=== PATIENT | female | born 1980 | race Caucasian/White ===

== ENCOUNTER → 2018-12-07 | Emergency (ER) | payer OTHER ==
[~2018-12-07] VITALS: Ht 167.6 cm; Wt 71.7 kg
[~2018-12-07] MED LIST: ASPIRIN 81 MG CHEW (CHILDREN'S ASA) PO ONE; CATHETER FLUSH 10 ML SYR IV PRN; CYCL10TA9 PO; HOLD METFORMIN - RECEIVED CONTRAST 20 ML VIAL IV SCH; IOHEXOL 350 MG/ML 100 ML (OMNIPAQUE 350) VIAL IV ONE; NS 100 ML (IVPB) BAG IV ONE; ONDANSETRON 4 MG/2 ML (SDV) Z0FRAN ONE; RX-CYCLOBENZAPRINE 10 MG (FLEXERIL) TAB PPK#3 PO STA; RX-TRAMADOL 50 MG (ULTRAM) TAB PPK#4 PO STA; TRAM-42 PO
--- NOTE | 2018-12-07 19:00 | NUR ---
report from jackie rn and another nurse. i think i need to give asa.
[2018-12-07 19:06] LABS: BASOPHILS % (AUTO) 1 % (0-10); EOSINOPHILS # (AUTO) 0.1 10^3/uL (0.0-0.3); EOSINOPHILS % (AUTO) 1 % (0-10); HEMATOCRIT 31 % (35-52); HEMOGLOBIN 9.7 G/DL (11.5-16.0); LYMPHOCYTES # (AUTO) 1.9 X 10^3 (1.0-4.0); LYMPHOCYTES % (AUTO) 36 % (12-44); MEAN CORPUSCULAR HGB CONC 32 G/DL (32-36); MEAN CORPUSCULAR VOLUME 71 FL (80-99); MEAN PLATELET VOLUME 9.8 FL (7.4-10.4); MONOCYTES # (AUTO) 0.4 X 10^3 (0.0-1.0); MONOCYTES % (AUTO) 7 % (0-12); NEUTROPHILS # (AUTO) 2.9 X 10^3 (1.8-7.8); NEUTROPHILS % (AUTO) 55 % (42-75); PLATELET COUNT 295 10^3/uL (130-400); RED CELL DISTRIBUTION WIDTH 19.7 % (10.0-14.5); WHITE BLOOD COUNT 5.3 10^3/uL (4.3-11.0)
[2018-12-07 19:10] LABS: PROTHROMBIN TIME PATIENT 13.7 SEC (12.2-14.7)
--- NOTE | 2018-12-07 19:10 | Diagnostic Imaging Report ---
INDICATION: Chest pain. TECHNIQUE: Single view chest 6:59 PM. CORRELATION STUDY: 04/10/2007 FINDINGS: Heart size and mediastinum are stable. Vasculature is slightly more prominent from prior study without evidence for overt failure. The lungs are clear with no consolidating infiltrate. There is no significant effusion or pneumothorax. IMPRESSION: 1. Borderline vasculature without evidence for overt failure. Likely largely accentuated by technique and limited depth of inspiration. Dictated by: Dictated on workstation # [id number]
[2018-12-07 19:14] LABS: MEAN CORPUSCULAR HEMOGLOBIN 22 PG (25-34)
[2018-12-07 19:21] LABS: ALANINE AMINOTRANSFERASE 12 U/L (0-55); ALBUMIN 4.1 GM/DL (3.2-4.5); ALKALINE PHOSPHATASE 69 U/L (40-136); AMYLASE 53 U/L (25-125); BILIRUBIN,TOTAL 0.4 MG/DL (0.1-1.0); BUN/CREATININE RATIO 11; CALCIUM 8.7 MG/DL (8.5-10.1); CARBON DIOXIDE 21 MMOL/L (21-32); CHLORIDE 107 MMOL/L (98-107); CREATINE KINASE 179 U/L (29-168); CREATININE SERUM 0.72 MG/DL (0.60-1.30); GFR ESTIMATED > 60; GLUCOSE 102 MG/DL (70-105); LIPASE 37 U/L (8-78); MAGNESIUM 2.2 MG/DL (1.8-2.4); POTASSIUM 3.9 MMOL/L (3.6-5.0); SODIUM 137 MMOL/L (135-145); TOTAL PROTEIN 6.8 GM/DL (6.4-8.2)
[2018-12-07 19:29] LABS: CREATINE KINASE MB 0.7 NG/ML (<6.6)
[2018-12-07 19:33] LABS: BILIRUBIN,URINE NEGATIVE (NEGATIVE); CLARITY,URINE CLEAR; COLOR,URINE YELLOW; GLUCOSE, URINE (UA) NEGATIVE (NEGATIVE); KETONES,URINE NEGATIVE (NEGATIVE); LEUKOCYTE ESTERASE ,URINE NEGATIVE (NEGATIVE); NITRITE,URINE NEGATIVE (NEGATIVE); PH,URINE 5 (5-9); PROTEIN,URINE NEGATIVE (NEGATIVE); UROBILINOGEN,URINE NORMAL (NORMAL)
[2018-12-07 19:37] VITALS: BP 105/70
--- NOTE | 2018-12-07 19:37 | NUR ---
lungs were equal cta bilaterally.
--- NOTE | 2018-12-07 19:37 | NUR ---
pt here with " son and sons dad". pt alert gcs 15 but kept her eye closed during my exam. pt c/o chest pain " comes and does". denies this c/o currently. does c/o neck and h/a pain. relates nausea as " not so bad". no v/d noted in er visit thus far. denies abd pain. nita dyspnea and no acute sighns of dyspnea noted. lungs cta bilaterally. abd soft nondistended neg pain with palpation. tele shows sr 65.iv, labs, ekg, ua , and xr done already.
--- NOTE | 2018-12-07 19:37 | NUR ---
pt has dry nonproductive cough in er.
[2018-12-07 19:42] LABS: BACTERIA,URINE TRACE /HPF
[2018-12-07 19:46] LABS: AMPHETAMINE SCREEN, URINE NEGATIVE (NEGATIVE); BARBITURATE SCREEN URINE NEGATIVE (NEGATIVE); BENZODIAZEPINES SCREEN URINE NEGATIVE (NEGATIVE); CANNABINOID SCREEN, URINE NEGATIVE (NEGATIVE); COCAINE SCREEN URINE NEGATIVE (NEGATIVE); METHADONE STAT NEGATIVE (NEGATIVE); METHAMPHETAMINE SCREEN URINE S NEGATIVE (NEGATIVE); OPIATE SCREEN URINE NEGATIVE (NEGATIVE); OXYCODONE STAT NEGATIVE (NEGATIVE); PROPOXYPHENE STAT NEGATIVE (NEGATIVE); TRICYCLIC ANTIDEPRESSANTS SCRE NEGATIVE (NEGATIVE)
--- NOTE | 2018-12-07 20:00 | ED Chest Pain ---
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 Pt c/o nausea and headache. Pt reports pain radiates to L arm and shoulder. Nursing Sepsis Screen: No Definite Risk Allergies and Home Medications Allergies Coded Allergies: promethazine (Verified Allergy, Unknown, 12/07/18) Past Ggsbaiu-Pgsvrd-Uoatpl Hx Patient Social History Alcohol Use: Occasionally Uses Recreational Drug Use: No Smoking Status: Current Everyday Smoker Type Used: Cigarettes 2nd Hand Smoke Exposure: Yes Recent Foreign Travel: No Contact w/Someone Who Travel: No Recent Infectious Disease Expo: No Recent Hopitalizations: No Seasonal Allergies Seasonal Allergies: No Past Medical History Surgeries: Yes (gastric bypass) Section, Gallbladder, Orthopedic, Tubal Ligation Respiratory: No Cardiac: No Neurological: No Last Menstrual Period: December 02, 2018 Genitourinary: No Gastrointestinal: No Musculoskeletal: No Endocrine: No HEENT: No Cancer: No Psychosocial: No Integumentary: No Blood Disorders: No Adverse Reaction/Blood Tranf: No Physical Exam Vital Signs Vital Signs - First Documented 12/07/18 12/07/18 18:48 18:52 Temp 99.2 Pulse 67 Resp 16 B/P (MAP) 105/62 (76) Pulse Ox 100 O2 Delivery Room Air Capillary Refill : Less Than 3 Seconds Height, Weight, BMI Height: 5'6.00" Weight: 158lbs. oz. 71.444349zg; BMI Method:Stated Progress/Results/Core Measures Results/Orders Lab Results Laboratory Tests Test 12/07/18 18:50 12/07/18 19:22 Range/Units White Blood Count 5.3 4.3-11.0 10^3/uL Red Blood Count 4.32 L 4.35-5.85 10^6/uL Hemoglobin 9.7 L 11.5-16.0 G/DL Hematocrit 31 L 35-52 % Mean Corpuscular Volume 71 L 80-99 FL Mean Corpuscular Hemoglobin 22 L 25-34 PG Mean Corpuscular Hemoglobin Concent 32 32-36 G/DL Red Cell Distribution Width 19.7 H 10.0-14.5 % Platelet Count 295 130-400 10^3/uL Mean Platelet Volume 9.8 7.4-10.4 FL Neutrophils (%) (Auto) 55 42-75 % Lymphocytes (%) (Auto) 36 12-44 % Monocytes (%) (Auto) 7 0-12 % Eosinophils (%) (Auto) 1 0-10 % Basophils (%) (Auto) 1 0-10 % Neutrophils # (Auto) 2.9 1.8-7.8 X 10^3 Lymphocytes # (Auto) 1.9 1.0-4.0 X 10^3 Monocytes # (Auto) 0.4 0.0-1.0 X 10^3 Eosinophils # (Auto) 0.1 0.0-0.3 10^3/uL Basophils # (Auto) 0.0 0.0-0.1 10^3/uL Prothrombin Time 13.7 12.2-14.7 SEC INR Comment 1.0 0.8-1.4 Activated Partial Thromboplast Time 30 24-35 SEC Sodium Level 137 135-145 MMOL/L Potassium Level 3.9 3.6-5.0 MMOL/L Chloride Level 107 98-107 MMOL/L Carbon Dioxide Level 21 21-32 MMOL/L Anion Gap 9 5-14 MMOL/L Blood Urea Nitrogen 8 7-18 MG/DL Creatinine 0.72 0.60-1.30 MG/DL Estimat Glomerular Filtration Rate > 60 BUN/Creatinine Ratio 11 Glucose Level 102 70-105 MG/DL Calcium Level 8.7 8.5-10.1 MG/DL Corrected Calcium 8.6 8.5-10.1 MG/DL Magnesium Level 2.2 1.8-2.4 MG/DL Total Bilirubin 0.4 0.1-1.0 MG/DL Aspartate Amino Transf (AST/SGOT) 20 5-34 U/L Alanine Aminotransferase (ALT/SGPT) 12 0-55 U/L Alkaline Phosphatase 69 40-136 U/L Total Creatine Kinase 179 H 29-168 U/L Creatine Kinase MB 0.7 <6.6 NG/ML Myoglobin 22.1 10.0-92.0 NG/ML Troponin I < 0.028 <0.028 NG/ML B-Type Natriuretic Peptide 17.6 <100.0 PG/ML Total Protein 6.8 6.4-8.2 GM/DL Albumin 4.1 3.2-4.5 GM/DL Amylase Level 53 25-125 U/L Lipase 37 8-78 U/L Serum Test, Qualitative NEGATIVE NEGATIVE Serum Alcohol 22 H <10 MG/DL Urine Color YELLOW Urine Clarity CLEAR Urine pH 5 5-9 Urine Specific [place] 1.010 L 1.016-1.022 Urine Protein NEGATIVE NEGATIVE Urine Glucose (UA) NEGATIVE NEGATIVE Urine Ketones NEGATIVE NEGATIVE Urine Nitrite NEGATIVE NEGATIVE Urine Bilirubin NEGATIVE NEGATIVE Urine Urobilinogen NORMAL NORMAL MG/DL Urine Leukocyte Esterase NEGATIVE NEGATIVE Urine RBC (Auto) NEGATIVE NEGATIVE Urine RBC NONE /HPF Urine WBC NONE /HPF Urine Squamous Epithelial Cells 2-5 /HPF Urine Crystals NONE /LPF Urine Bacteria TRACE /HPF Urine Casts NONE /LPF Urine Mucus NEGATIVE /LPF Urine Culture Indicated NO Urine Opiates Screen NEGATIVE NEGATIVE Urine Oxycodone Screen NEGATIVE NEGATIVE Urine Methadone Screen NEGATIVE NEGATIVE Urine Propoxyphene Screen NEGATIVE NEGATIVE Urine Barbiturates Screen NEGATIVE NEGATIVE Ur Tricyclic Antidepressants Screen NEGATIVE NEGATIVE Urine Phencyclidine Screen NEGATIVE NEGATIVE Urine Amphetamines Screen NEGATIVE NEGATIVE Urine Methamphetamines Screen NEGATIVE NEGATIVE Urine Benzodiazepines Screen NEGATIVE NEGATIVE Urine Cocaine Screen NEGATIVE NEGATIVE Urine Cannabinoids Screen NEGATIVE NEGATIVE My Orders Orders - SHANTA BARKERA K DO Cbc With Automated Diff (12/07/18 18:51) Magnesium (12/07/18 18:51) Chest 1 View, Ap/Pa Only (12/07/18 18:51) Ekg Tracing (12/07/18 18:51) Cardiac Profile 1 (12/07/18 18:51) Comprehensive Metabolic Panel (12/07/18 18:51) Myoglobin Serum (12/07/18 18:51) Protime With Inr (12/07/18 18:51) Partial Thromboplastin Time (12/07/18 18:51) O2 (12/07/18 18:51) Monitor-Rhythm Ecg Trace Only (12/07/18 18:51) Lipid Panel (12/08/18 06:00) Ed Iv/Invasive Line Start (12/07/18 18:51) Creatine Kinase (12/07/18 18:51) Creatine Kinase Mb (12/07/18 18:51) Lipase (12/07/18 18:51) Amylase (12/07/18 18:51) BNP (12/07/18 18:51) Troponin I (12/07/18 18:51) Aspirin Chewable Tablet (Baby Aspirin Ch (12/07/18 19:00) Alcohol (12/07/18 18:51) Drug Screen Stat (Urine) (12/07/18 18:51) Hcg,Qualitative Serum (12/07/18 18:51) Ua Culture If Indicated (12/07/18 18:51) Ondansetron Injection (Zofran Injectio (12/07/18 18:58) Ct Angio Chest W (12/07/18 19:53) Iohexol Injection (Omnipaque 350 Mg/Ml 1 (12/07/18 20:00) Received Contrast (Hold Metformin- Contr (12/07/18 20:00) Sodium Chloride Flush (Catheter Flush Sy (12/07/18 20:00) Ns (Ivpb) (Sodium Chloride 0.9% Ivpb Bag (12/07/18 20:00) Rx-Cyclobenzaprine Tablet (Rx-Flexeril T (12/07/18 20:48) Rx-Tramadol Hcl (Rx-Ultram) (12/07/18 20:48) Medications Given in ED Current Medications Medications Dose Ordered Sig/Christo Route Start Time Stop Time Status Last Admin Dose Admin Aspirin 324 mg ONCE ONCE PO 12/07/18 19:00 12/07/18 19:01 DC 12/07/18 19:09 324 MG Iohexol 100 ml ONCE ONCE IV 12/07/18 20:00 12/07/18 20:01 DC 12/07/18 20:29 65 ML Ondansetron HCl 4 mg STK-MED ONCE .ROUTE 12/07/18 18:58 12/07/18 19:02 DC 12/07/18 19:00 8 MG Sodium Chloride 10 ml NEEDED PRN IV 12/07/18 20:00 12/07/18 20:29 10 ML Sodium Chloride 100 ml ONCE ONCE IV 12/07/18 20:00 12/07/18 20:01 DC 12/07/18 20:29 84 ML Vital Signs/I&O 12/07/18 12/07/18 12/07/18 18:48 18:52 19:37 Temp 99.2 98.8 Pulse 67 68 Resp 16 16 B/P (MAP) 105/62 (76) 105/70 (82) Pulse Ox 100 99 O2 Delivery Room Air Room Air Room Air Blood Pressure Mean: 82 Departure Impression Primary Impression: LEFT UPPER CHEST WALL PAIN Disposition: 01 HOME, SELF-CARE Condition: Improved Departure-Patient Inst. Referrals: NO,LOCAL PHYSICIAN (PCP/Family) Primary Care Physician Patient Instructions: Chest Pain That Is Not Caused by the Heart (DC), Muscle Strain (DC) Add. Discharge Instructions: MOIST HEAT TO AREA AT 20 MINUTE INTERVALS FOLLOW UP WITH OF CHOICE IN 2-3 DAYS IF NO BETTER All discharge instructions reviewed with patient and/or family. Voiced understanding. Scripts Tramadol HCl (Ultram) 50 Mg Tablet 50 MG PO Q4H PRN for PAIN-MODERATE for 3 Days, TAB Prov: TALI BARKER DO 12/07/18 Cyclobenzaprine HCl (Cyclobenzaprine HCl) 10 Mg Tablet 10 MG PO Q8H, #15 TAB Prov: TALI BARKER DO 12/07/18 TALI BARKER DO December 07, 2018 20:00
--- NOTE | 2018-12-07 20:41 | Diagnostic Imaging Report ---
PROCEDURE: CT angiography of the chest with contrast. TECHNIQUE: Multiple contiguous axial images were obtained through the chest after uneventful bolus administration of intravenous contrast. 2D reconstructed CTA MIP acquisitions were also performed. Auto Exposure Controls were utilized during the CT exam to meet ALARA standards for radiation dose reduction. INDICATION: Chest pain. Surgical history includes gastric bypass and cholecystectomy. FINDINGS: There are no primary nodules, masses, or infiltrates. There is no pleural or pericardial fluid. There is no pneumothorax. There is no pathologically enlarged adenopathy in the chest. The thoracic aorta is normal in caliber and without evidence of dissection. There are no filling defects seen within the pulmonary arteries to suggest a pulmonary embolism. The visualized intraabdominal structures are unremarkable. The osseous structures are unremarkable. IMPRESSION: No acute abnormality in the chest. Specifically, there is no evidence of a pulmonary embolism or aortic dissection. Dictated by: Dictated on workstation # [id number]
[2018-12-07 21:20] VITALS: BP 99/74
--- NOTE | 2018-12-07 21:20 | NUR ---
d/c instructions to pt. told to read all papers. scripts paper and faxed. pt left ambulatory with family. pt knows f/u. i went over the handtyped by information on the chart. iv d/.cd by me prior to d/c. take home flexeril and ultram given. pt denies chest pain and no acute sighns of dyspnea noted at d/c tele showed sb 52.
== END | disposition home or self-care (01) ==
LOC: EDUNIT# 18:48 → ER 18:49
DX: R07.9 Chest pain, unspecified (principal); F17.210 Nicotine dependence, cigarettes, uncomplicated; Z88.8 Allergy status to other drugs, medicaments and biological substances; Z98.890 Other specified postprocedural states; Z98.51 Tubal ligation status; Z98.84 Bariatric surgery status
CPT/HCPCS: 36415; 71045; 71275; 80053; 80306; 80320; 81000; 82150; 82550; 82553; 83690; 83735; 83874; 83880; 84484; 84703; 85025; 85610; 85730; 93005; 93041; 96374

== ENCOUNTER 2019-03-07 09:46 | Emergency (ER) | payer OTHER ==
[~2019-03-07] VITALS: Ht 170.2 cm; Wt 68.0 kg
[~2019-03-07 09:46] MED LIST changes: -ASPIRIN 81 MG CHEW (CHILDREN'S ASA) PO ONE; -CATHETER FLUSH 10 ML SYR IV PRN; -HOLD METFORMIN - RECEIVED CONTRAST 20 ML VIAL IV SCH; -IOHEXOL 350 MG/ML 100 ML (OMNIPAQUE 350) VIAL IV ONE; -NS 100 ML (IVPB) BAG IV ONE; -ONDANSETRON 4 MG/2 ML (SDV) Z0FRAN ONE; -RX-CYCLOBENZAPRINE 10 MG (FLEXERIL) TAB PPK#3 PO STA; -RX-TRAMADOL 50 MG (ULTRAM) TAB PPK#4 PO STA
[2019-03-07] MEDS ORDERED: NS IV 1000 ML 1,000 ML IV SCH (10:03)
[2019-03-07 10:13] LABS: BASOPHILS % (AUTO) 0 % (0-10); EOSINOPHILS # (AUTO) 0.1 10^3/uL (0.0-0.3); EOSINOPHILS % (AUTO) 1 % (0-10); HEMATOCRIT 29 % (35-52); HEMOGLOBIN 8.9 G/DL (11.5-16.0); LYMPHOCYTES # (AUTO) 2.3 X 10^3 (1.0-4.0); LYMPHOCYTES % (AUTO) 40 % (12-44); MEAN CORPUSCULAR HEMOGLOBIN 22 PG (25-34); MEAN CORPUSCULAR HGB CONC 31 G/DL (32-36); MEAN CORPUSCULAR VOLUME 72 FL (80-99); MEAN PLATELET VOLUME 10.1 FL (7.4-10.4); MONOCYTES # (AUTO) 0.3 X 10^3 (0.0-1.0); MONOCYTES % (AUTO) 5 % (0-12); NEUTROPHILS # (AUTO) 3.1 X 10^3 (1.8-7.8); NEUTROPHILS % (AUTO) 54 % (42-75); PLATELET COUNT 215 10^3/uL (130-400); RED CELL DISTRIBUTION WIDTH 19.9 % (10.0-14.5); WHITE BLOOD COUNT 5.7 10^3/uL (4.3-11.0)
--- NOTE | 2019-03-07 10:13 | ED Chest Pain ---
General Chief Complaint: Chest Pain Stated Complaint: CHEST PAIN Source: patient Exam Limitations: no limitations History of Present Illness Date Seen by Provider: Mar 07, 2019 Time Seen by Provider: 09:57 Initial Comments Here with report of left-sided chest pain that goes to the left shoulder. Acute onset within the last hour. EMS was summoned to her work. They did initiate aspirin and nitroglycerin sublingual and then paste. She states that pain fellow better. She still feels. Denies nausea, vomiting, diaphoresis but does report shortness of breath and feeling weak. Did have bronchitis one to 2 weeks ago and was treated with azithromycin 5 day pack. States that she was doing better. Does have a fever today. Timing/Duration: 1 hour Severity/Quality: moderate, tightness Location: central Radiation: arms (left) Activities at Onset: other (was at work) Prior CP/Workup: no prior chest pain Modifying Factors: improves with nitroglycerin, improves with rest ASA po SEO SPECIALIST: Yes NTG SL SEO SPECIALIST: Yes Associated Symptoms: No abdominal pain, No dizziness, No edema; fever/chills; No nausea/vomiting; shortness of breath, weakness Allergies and Home Medications Allergies Coded Allergies: NSAIDS (Non-Steroidal Anti-Inflamma (Verified Allergy, Unknown, 03/07/19) promethazine (Verified Allergy, Unknown, 12/07/18) Home Medications No Active Prescriptions or Reported Meds Patient Home Medication List Home Medication List Reviewed: Yes Review of Systems Review of Systems Constitutional: see HPI; No chills; fever, weakness EENTM: No Symptoms Reported Respiratory: See HPI; Denies Cough, Denies Wheezing Cardiovascular: Chest Pain, Lightheadedness; Denies Palpitations Gastrointestinal: Denies Nausea, Denies Vomiting Genitourinary: No Symptoms Reported Musculoskeletal: see HPI, joint pain, muscle pain Skin: no symptoms reported Psychiatric/Neurological: No Symptoms Reported All Other Systems Reviewed Negative Unless Noted: Yes Past Amtlche-Imsexk-Vkqyio Hx Past Med/Social Hx: Reviewed Nursing Past Med/Soc Hx Patient Social History Alcohol Use: Occasionally Uses Recreational Drug Use: No Smoking Status: Current Everyday Smoker Type Used: Cigarettes 2nd Hand Smoke Exposure: Yes Recent Hopitalizations: No Seasonal Allergies Seasonal Allergies: No Past Medical History Surgeries: Yes Abdominal, Adenoidectomy, Section, Ear Surgery, Gallbladder, Orthopedic, Tonsillectomy, Tubal Ligation Respiratory: Yes (PNEUMONIA X 1) Pneumonia Cardiac: No Neurological: No 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 oz. 71.828454wi; BMI Method:Stated General Appearance: No Apparent Distress, WD/WN HEENT: PERRL/EOMI, Pharynx Normal Neck: Non Tender, Supple Respiratory: Lungs Clear, Normal Breath Sounds, Other (mild tenderness to the left anterior chest wall on palpation) Cardiovascular: Regular Rate, Rhythm, No Murmur Gastrointestinal: Non Tender, Soft Extremity: Normal Range of Motion, Non Tender Neurologic/Psychiatric: Alert, Oriented x3 Skin: Normal Color, Warm/Dry Focused Exam Lactate Level 03/07/19 10:00: Lactic Acid Level 1.28 Lactic Acid Level Laboratory Tests Test 03/07/19 10:00 Lactic Acid Level 1.28 MMOL/L (0.50-2.00) Progress/Results/Core Measures Results/Orders Lab Results Laboratory Tests Test 03/07/19 10:00 03/07/19 11:37 03/07/19 12:03 Range/Units White Blood Count 5.7 4.3-11.0 10^3/uL Red Blood Count 3.98 L 4.35-5.85 10^6/uL Hemoglobin 8.9 L 11.5-16.0 G/DL Hematocrit 29 L 35-52 % Mean Corpuscular Volume 72 L 80-99 FL Mean Corpuscular Hemoglobin 22 L 25-34 PG Mean Corpuscular Hemoglobin Concent 31 L 32-36 G/DL Red Cell Distribution Width 19.9 H 10.0-14.5 % Platelet Count 215 130-400 10^3/uL Mean Platelet Volume 10.1 7.4-10.4 FL Neutrophils (%) (Auto) 54 42-75 % Lymphocytes (%) (Auto) 40 12-44 % Monocytes (%) (Auto) 5 0-12 % Eosinophils (%) (Auto) 1 0-10 % Basophils (%) (Auto) 0 0-10 % Neutrophils # (Auto) 3.1 1.8-7.8 X 10^3 Lymphocytes # (Auto) 2.3 1.0-4.0 X 10^3 Monocytes # (Auto) 0.3 0.0-1.0 X 10^3 Eosinophils # (Auto) 0.1 0.0-0.3 10^3/uL Basophils # (Auto) 0.0 0.0-0.1 10^3/uL Prothrombin Time 14.7 12.2-14.7 SEC INR Comment 1.1 0.8-1.4 Activated Partial Thromboplast Time 29 24-35 SEC D-Dimer 0.41 0.00-0.49 UG/ML Sodium Level 139 135-145 MMOL/L Potassium Level 3.5 L 3.6-5.0 MMOL/L Chloride Level 110 H 98-107 MMOL/L Carbon Dioxide Level 21 21-32 MMOL/L Anion Gap 8 5-14 MMOL/L Blood Urea Nitrogen 8 7-18 MG/DL Creatinine 0.72 0.60-1.30 MG/DL Estimat Glomerular Filtration Rate > 60 BUN/Creatinine Ratio 11 Glucose Level 93 70-105 MG/DL Lactic Acid Level 1.28 0.50-2.00 MMOL/L Calcium Level 8.5 8.5-10.1 MG/DL Corrected Calcium 8.7 8.5-10.1 MG/DL Total Bilirubin 0.5 0.1-1.0 MG/DL Aspartate Amino Transf (AST/SGOT) 15 5-34 U/L Alanine Aminotransferase (ALT/SGPT) 14 0-55 U/L Alkaline Phosphatase 40 40-136 U/L Troponin I < 0.028 < 0.028 <0.028 NG/ML Total Protein 6.2 L 6.4-8.2 GM/DL Albumin 3.8 3.2-4.5 GM/DL Urine Color YELLOW Urine Clarity CLEAR Urine pH 6.5 5-9 Urine Specific [place] 1.010 L 1.016-1.022 Urine Protein NEGATIVE NEGATIVE Urine Glucose (UA) NEGATIVE NEGATIVE Urine Ketones 1+ H NEGATIVE Urine Nitrite NEGATIVE NEGATIVE Urine Bilirubin NEGATIVE NEGATIVE Urine Urobilinogen NORMAL NORMAL MG/DL Urine Leukocyte Esterase NEGATIVE NEGATIVE Urine RBC (Auto) NEGATIVE NEGATIVE Urine RBC NONE /HPF Urine WBC NONE /HPF Urine Squamous Epithelial Cells 2-5 /HPF Urine Crystals NONE /LPF Urine Bacteria TRACE /HPF Urine Casts NONE /LPF Urine Mucus NEGATIVE /LPF Urine Culture Indicated CULTURE PENDING My Orders Orders - RAZIA BURNHAM MD Ekg Tracing (03/07/19 09:48) Cbc With Automated Diff (03/07/19 10:03) Comprehensive Metabolic Panel (03/07/19 10:03) Blood Culture (03/07/19 10:03) Sputum Culture (03/07/19 10:03) Urinalysis (03/07/19 10:03) Urine Culture (03/07/19 10:03) Protime With Inr (03/07/19 10:03) Partial Thromboplastin Time (03/07/19 10:03) Chest 1 View, Ap/Pa Only (03/07/19 10:03) Troponin I (03/07/19 10:03) Vital Signs Adult Sepsis Patie Q15M (03/07/19 10:03) O2 (03/07/19 10:03) Remove Rings In Anticipation O (03/07/19 10:03) Lactic Acid Analyzer (03/07/19 10:03) Ns Iv 1000 Ml (Sodium Chloride 0.9%) (03/07/19 10:03) Fibrin Degradation Products (03/07/19 10:03) Troponin I (03/07/19 12:01) Vital Signs/I&O 03/07/19 03/07/19 09:46 10:23 Temp 100.6 Pulse 59 55 Resp 18 18 B/P (MAP) 98/68 (78) 102/70 (81) Pulse Ox 100 99 O2 Delivery Room Air Room Air Progress Progress Note : Progress Note Seen and evaluated. IV by EMS. Labs, EKG, chest x-ray and normal saline 1 L bolus ordered. Monitor patient. 1153: Pain is resolved and nitros off. She is feeling better. We did discuss with her regarding the anemia. She is with [employer] insurance and has moved back here and does not have local physician yet. She did know about the anemia and has started iron and multivitamins within the last week. She is going to call [facility] for local doctor. We will repeat troponin. Currently troponin negative. If repeat troponin are negative, we will discharged home as she is feeling much better. Monitor patient. 1250: No acute findings. Discharged home with return precautions. Patient verbalize understanding instructions and agreement with plan. Initial ECG Impression Date: Mar 07, 2019 Initial ECG Impression Time: 09:54 Initial ECG Rate: 59 Initial ECG Rhythm: Normal Sinus Initial ECG Impression: Normal Initial ECG Comparisson: Unchanged Comment Sinus rhythm with normal axis. No evidence of ST elevation IA. Similar to previous of 12/07/18. Interpreted by me. Diagnostic Imaging Diagonstic Imaging: Xray Plain Films/CT/US/NM/MRI: chest Comments [facility], [place] NAME: HERMINIA COOK [facility] REC#: [id number] PT STATUS: REG ER : 1980 PHYSICIAN: RAZIA BURNHAM MD ADMIT DATE: 03/07/19/ER Draft Date of Exam:03/07/19 CHEST 1 VIEW, AP/PA ONLY PATIENT HISTORY: Chest pain. TECHNIQUE: Single frontal view of the chest COMPARISON: 12/07/2018 FINDINGS: The lung volumes are normal. No focal consolidation is seen. No large pleural effusion or pneumothorax is seen. The cardiomediastinal silhouette is normal in size and contour. No acute osseous abnormality is seen. IMPRESSION: No acute pulmonary abnormality seen. Dictated on workstation # [id number] Dict: 03/07/19 1114 Trans: 03/07/[address] [facility] [id number] Interpreted by: AMY SUTTON MD Electronically signed by: Departure Impression Primary Impression: Chest pain Qualified Codes: R07.9 - Chest pain, unspecified Additional Impressions: Bronchitis Anemia Qualified Codes: D64.9 - Anemia, unspecified Disposition: 01 HOME, SELF-CARE Condition: Improved Departure-Patient Inst. Decision time for Depature: 12:32 Referrals: GAIL SANDOVAL MD FACP FAC CCDS Linda MARINO MD, BASHAR J MD NO,LOCAL PHYSICIAN (PCP) Primary Care Physician Patient Instructions: Chest Pain (DC), Acute Bronchitis, Adult (DC), Anemia Caused by Low Iron, Adult (DC) Add. Discharge Instructions: All discharge instructions reviewed with patient and/or family. Voiced understanding. Continue iron supplements and multivitamins. It is very important that he get a local doctor for follow-up regarding the anemia and chest pain. You may follow- up with the hot bread baker listed or of your choosing. Return for worse pain, fever, vomiting, weakness, breathing problems or other concerns as needed. Scripts No Active Prescriptions or Reported Meds Work/School Note: Local Medical Staff Listing RAIZA BURNHAM MD Mar 07, 2019 10:12
[2019-03-07 10:23] VITALS: BP 102/70
--- NOTE | 2019-03-07 10:26 | NUR ---
LAB HERE TO DRAW 2ND BLOOD CULTURE.
[2019-03-07 10:30] LABS: ALANINE AMINOTRANSFERASE 14 U/L (0-55); ALBUMIN 3.8 GM/DL (3.2-4.5); ALKALINE PHOSPHATASE 40 U/L (40-136); BILIRUBIN,TOTAL 0.5 MG/DL (0.1-1.0); BUN/CREATININE RATIO 11; CALCIUM 8.5 MG/DL (8.5-10.1); CARBON DIOXIDE 21 MMOL/L (21-32); CHLORIDE 110 MMOL/L (98-107); CREATININE SERUM 0.72 MG/DL (0.60-1.30); GFR ESTIMATED > 60; GLUCOSE 93 MG/DL (70-105); POTASSIUM 3.5 MMOL/L (3.6-5.0); SODIUM 139 MMOL/L (135-145); TOTAL PROTEIN 6.2 GM/DL (6.4-8.2)
--- NOTE | 2019-03-07 10:35 | NUR ---
SISTER TO BEDSIDE
[2019-03-07 10:42] LABS: FIBRIN DEGRADATION PRODUCTS 0.41 UG/ML (0.00-0.49); INR 1.1 (0.8-1.4); PROTHROMBIN TIME PATIENT 14.7 SEC (12.2-14.7)
--- NOTE | 2019-03-07 10:55 | NUR ---
UNABLE TO GIVE UA AT THIS TIME.
--- NOTE | 2019-03-07 11:18 | Diagnostic Imaging Report ---
PATIENT HISTORY: Chest pain. TECHNIQUE: Single frontal view of the chest COMPARISON: 12/07/2018 FINDINGS: The lung volumes are normal. No focal consolidation is seen. No large pleural effusion or pneumothorax is seen. The cardiomediastinal silhouette is normal in size and contour. No acute osseous abnormality is seen. IMPRESSION: No acute pulmonary abnormality seen. Dictated by: Dictated on workstation # [id number]
[2019-03-07 11:43] LABS: BILIRUBIN,URINE NEGATIVE (NEGATIVE); CLARITY,URINE CLEAR; COLOR,URINE YELLOW; GLUCOSE, URINE (UA) NEGATIVE (NEGATIVE); KETONES,URINE 1+ (NEGATIVE); LEUKOCYTE ESTERASE ,URINE NEGATIVE (NEGATIVE); NITRITE,URINE NEGATIVE (NEGATIVE); PH,URINE 6.5 (5-9); PROTEIN,URINE NEGATIVE (NEGATIVE); UROBILINOGEN,URINE NORMAL (NORMAL)
[2019-03-07 11:54] LABS: BACTERIA,URINE TRACE /HPF
[2019-03-07 13:11] VITALS: BP 102/70
== END 2019-03-07 13:07 | disposition home or self-care (01) ==
LOC: EDUNIT# 09:46 → ER 09:47
DX: J40 Bronchitis, not specified as acute or chronic (principal); D64.9 Anemia, unspecified; F17.210 Nicotine dependence, cigarettes, uncomplicated; Z88.6 Allergy status to analgesic agent; Z88.8 Allergy status to other drugs, medicaments and biological substances; Z90.89 Acquired absence of other organs; Z98.51 Tubal ligation status; Z87.01 Personal history of pneumonia (recurrent); Z90.49 Acquired absence of other specified parts of digestive tract; Z98.84 Bariatric surgery status
CPT/HCPCS: 36415; 71045; 80053; 81000; 83605; 84484; 85025; 85379; 85610; 85730; 87040; 87088; 93005